=== PATIENT | male | born 1985 | race Caucasian/White ===

== ENCOUNTER 2023-01-25 13:40 | Emergency (ER) | payer OTHER, SELFPAY ==
[2023-01-25 13:46] VITALS: BP 177/96; PULSE 91; RESP 20; TEMP 36.7; O2SAT 96
--- NOTE | 2023-01-25 14:59 | ED.URI ---
HPI - URI/Sore Throat General Chief Complaint: Upper Respiratory Infection Stated Complaint: Cough/Chest Congestion Time Seen by Provider: 01/25/23 14:54 Source: patient and RN notes reviewed Mode of arrival: ambulatory Limitations: no limitations History of Present Illness HPI Narrative: Patient presents today complaining of a 3 week history of nasal congestion, cough, postnasal drip, sinus pressure. Denies shortness of breath or fever. He has been taking ibuprofen with some mild relief. Denies history of asthma or COPD. Related Data Allergies Allergy/AdvReac Type Severity Reaction Status Date / Time No Known Allergies Allergy Verified 01/25/23 13:57 Review of Systems Review of Systems: CONSTITUTIONAL: Denies body aches, fever, chills, or sweats. EYES: Denies visual changes, redness, or discharge. ENT: Denies rhinorrhea, sore throat, or otalgia.+ congestion, sinus pressure, postnasal drip CARDIOVASCULAR: Denies chest pain, palpitations, or edema. RESPIRATORY: Denies dyspnea.+ congestion GASTROINTESTINAL: Denies abdominal pain, nausea, vomiting, or diarrhea. GENITOURINARY: Denies dysuria or hematuria. SKIN: Denies rash, itching, or wounds. MUSCULOSKELETAL: Denies back pain, joint pain, or myalgia. NEUROLOGIC: Denies headache, numbness, tingling, or weakness. PSYCH: Denies depression or anxiety. PMFSH Past Medical History Medical History BMI greater than 40 Numbness in both hands Family History Family History Mother Family history of lymphoma Grandparent Diabetes mellitus Social History Social History Smoking status: Never smoker Alcohol intake: never Comments At time of signature, I have reviewed and agree with nursing past medical, surgical, social and family history unless otherwise noted. Please see nursing chart for further information. There is no relevant family history pertinent to the presenting complaint Exam Narrative: GENERAL: Well-appearing, well-nourished, and in no acute distress. HEAD: Normocephalic, atraumatic. EYES: EOMI. No redness or drainage. Conjunctivae normal. ENT: Mucous membranes pink and moist. Nares congested. No rhinorrhea. TMs normal bilaterally. Throat normal. Uvula midline. Bilateral frontal and maxillary sinus tenderness. NECK: Normal AROM. Supple. No lymphadenopathy. CHEST: No respiratory distress. Clear to auscultation. HEART: Regular rate and rhythm. No murmur appreciated. Normal peripheral pulses. EXTREMITIES: Normal range of motion. No edema. SKIN: Warm, dry, no rash. Capillary refill normal. Normal skin turgor. NEURO: No focal deficits. Alert and oriented x3. Gait steady. PSYCH: Normal affect. No signs of depression or anxiety. Course Course Level of Care: Express Care Visit Vital Signs Vital signs: Vital Signs Temperature 98.1 F 01/25/23 13:46 Pulse Rate 91 01/25/23 13:46 Respiratory Rate 20 01/25/23 13:46 Blood Pressure 177/96 H 01/25/23 13:46 Pulse Oximetry 96 01/25/23 13:46 Oxygen Delivery Room Air 01/25/23 13:46 Temperature 98.1 F 01/25/23 13:46 Pulse Rate 91 01/25/23 13:46 Respiratory Rate 20 01/25/23 13:46 Blood Pressure 177/96 H 01/25/23 13:46 Pulse Oximetry 96 01/25/23 13:46 Oxygen Delivery Room Air 01/25/23 13:46 Reviewed MDM - URI/Sore Throat MDM Narrative Medical decision making narrative: Prescriptions for Augmentin and prednisone sent to pharmacy to treat for sinusitis and bronchitis. Suggested Sudafed for sinus pressure. No testing indicated at this time. Anticipatory guidance given. Differential Diagnosis Differential diagnosis: Likely upper respiratory infection, sinusitis, viral infection and bronchitis Critical Care Time Critical Care Time Critical Care Time: No Discharge Plan Dis
== END 2023-01-25 15:05 | disposition home or self-care (01) ==
PROVIDERS: Emergency Provider Nurse Practitioner; PCP Family Medicine
DX: J40 Bronchitis, not specified as acute or chronic (principal); J01.90 Acute sinusitis, unspecified
CPT/HCPCS: 99213; G0463

== ENCOUNTER 2023-03-22 11:01 | Emergency (ER) | payer OTHER, SELFPAY ==
[2023-03-22 11:08] VITALS: BP 149/85; PULSE 90; RESP 16; TEMP 36.7; O2SAT 97
--- NOTE | 2023-03-22 11:33 | ED.GENADULT ---
HPI - General Adult General Chief complaint: Upper Respiratory Infection Stated complaint: cough / chest congestion Source: patient, RN notes reviewed and old records reviewed Mode of arrival: ambulatory Limitations: no limitations History of Present Illness HPI narrative: 37-year-old male presents to [facility] with complaint cough, shortness of breath this started 3-4 weeks ago. Patient states was seen here 2 months ago and diagnosed with bronchitis, patient states to prescription medications as prescribed, patient states symptoms did improve but never fully went away. MD complaint: Cough Onset (ago): week(s) (3-4) Related Data Allergies Allergy/AdvReac Type Severity Reaction Status Date / Time No Known Allergies Allergy Verified 03/22/23 11:26 Review of Systems Constitutional: Constitutional: Reports no additional constitutional complaints, Denies body ache(s), Denies chills, Denies fatigue, Denies fever(s) and Denies headache(s) Eyes: Eyes: Reports no additional eye complaints and Denies blurry vision ENT: Reports system reviewed and no additional complaints, except as documented, Denies vertigo, Denies dizziness, Denies ear discharge, Denies otalgia, Denies facial pain, Denies headache(s), Denies nasal congestion, Denies nasal discharge, Denies sinus pain, Denies sinus pressure and Denies sore throat Cardiovascular: Cardiovascular: Reports no additional cardiovascular complaints, Reports chest pain, Reports chest pain at rest, Denies rapid heart rate and Reports dyspnea Respiratory: Respiratory: Reports no additional respiratory complaints, Denies chest congestion, Denies cough, Denies pain on inspiration, Denies pain with cough and Denies dyspnea Gastrointestinal: Gastrointestinal: Denies abdominal pain, Denies diarrhea, Denies nausea and Denies vomiting Integumentary/Breasts: Skin/Breast: Denies rash Neurologic: Reports system reviewed and no additional complaints, except as documented, Denies vertigo, Denies dizziness and Denies headache(s) Endocrine: Endocrine: Denies fatigue PMFSH Past Medical History Medical History BMI greater than 40 Numbness in both hands Family History Family History Mother Family history of lymphoma Grandparent Diabetes mellitus Social History Social History Smoking status: Never smoker Alcohol intake: never Comments At the time of my signature, I reviewed and agree with the nursing past medical, surgical, social, and family history. There is no relevant family history pertinent to the patient complaint. Exam Const: General: cooperative, healthy appearing, no acute distress and well nourished Nutritional Appearance: well nourished Orientation/consciousness: patient oriented x3 Limitations: no limitations HENMT: Head: normal to inspection and normocephalic Ears: external ears normal, TM's normal bilaterally, mastoids normal and Abnormal EAC present Face/Nose/Sinus: normal facial exam Face and sinus: normal facial exam Mouth: Yes Normal oral and palatal mucosa present, Yes oropharynx normal and Yes moist mucous membranes Throat: tonsils normal, uvula midline and no uvular edema Eyes: General: appearance normal, both eyes and all related structures Sclera: sclerae normal Pupils: Equal, round and reactive pupils present Resp: Effort & Inspection: normal respiratory effort, able to speak in complete sentences, no audible wheezes, no cough, no respiratory distress and no retractions Auscultation: clear to auscultation bilaterally, no crackles, no rales, no rhonchi and no wheezes Cardio: Rate: regular rate Rhythm: regular rhythm Skin: General skin exam: normal color and no rashes or lesions noted Neuro: General: patient oriented x3 Cranial nerves: Yes Equal, round and reactive pupils present Psych:
== END 2023-03-22 11:49 | disposition home or self-care (01) ==
PROVIDERS: Emergency Provider Registered Nurse; PCP Family Medicine
DX: J20.9 Acute bronchitis, unspecified (principal)
CPT/HCPCS: 99213; G0463

== ENCOUNTER 2024-06-18 09:08 | Emergency (ER) | payer OTHER, SELFPAY ==
--- NOTE | ~2024-06-18 | XR_ITS ---
XR chest 2V Ordering provider: DEJA Cardoso History: 39 years Male with . cough and chest congestion 2-3 days. non smoker . Comparison: None. FINDINGS: MEDIASTINUM: The cardiac silhouette is not enlarged. Slightly prominent shane. LUNGS: No infiltrates, effusions or pneumothorax. OTHER: No free air under the diaphragm. Degenerative changes of the spine. IMPRESSION: No acute cardiopulmonary pathology. Reviewed, dictated and finalized at location A.
[2024-06-18 09:16] VITALS: BP 168/92; PULSE 98; RESP 20; TEMP 36.7; O2SAT 96
--- OUTSIDE RECORDS SUMMARY | 2024-06-18 10:00 | XMS_ITS | Clinical Summary ---
Author Organization [facility] Address [address] [place] [address] Care Team Providers Care Urology Teacher Name Role Phone Perez Draper MD Primary Care Provider [phone] Allergies Active Allergy Reactions Criticality Noted Date Comments Oxycodone-Acetaminop hen Other (See comments),Nausea & Vomiting Low 02/02/2021 And body aches- felt like I had the flu Wasp Venom Shortness of breath High 10/14/2017 Medications ibuprofen (ADVIL,MOTRIN) 200 mg tab/cap Take 2 tablet/capsule (400 mg total) by mouth every 6 (six) hours as needed for pain Active traMADoL (ULTRAM) 50 mg tabletIndications :Lateral epicondylitis of right elbow Take 0.5-1 tablets (25-50 mg total) by mouth every 8 (eight) hours as needed for pain P.r.n. pain not relieved by naproxen alone. Take with food. Collaborating physician Jayjay Ivory MD 20 tablet 03/25/20 24 Active docusate sodium (COLACE) 100 mg capsuleIndication s:constipation Take 1 capsule (100 mg total) by mouth 2 (two) times a day for 14 days 28 capsule 05/16/19 25 Active ondansetron (ZOFRAN) 4 mg tabletIndications :Prevention of Post-Operative Nausea and Vomiting Take 1 tablet (4 mg total) by mouth every 8 (eight) hours as needed for nausea or vomiting 20 tablet 05/16/19 25 Active oxyCODONE (ROXICODONE) 5 mg immediate release tabletIndications :Pain TAKE ONE TO TWO TABLETS EVERY 4 TO 6 HOURS PRN PAIN 40 tablet 05/16/19 25 Active famotidine (PEPCID) 40 mg tabletIndications :Laryngeal spasm Take 1 tablet (40 mg total) by mouth nightly 90 tablet 3 06/01/19 22 025 Discontin ued(Thera py completed ) cetirizine (ZyrTEC) 10 mg tabletIndications :Seasonal allergic rhinitis due to pollen Take 1 tablet (10 mg total) by mouth daily 30 tablet 11 07/01/19 22 025 Discontin ued(Thera py completed ) benzonatate (TESSALON) 200 mg capsuleIndication s:Acute cough Take 1 capsule (200 mg total) by mouth 3 (three) times a day as needed for cough 30 capsule 07/01/19 24 025 Discontin ued(Thera py completed ) naproxen (NAPROSYN) 500 mg tabletIndications :Lateral epicondylitis of right elbow Take 1 tablet (500 mg total) by mouth 2 (two) times a day with meals P.r.n. pain and swelling. Collaborating physician Jayjay Ivory MD 30 tablet 03/25/20 24 025 Discontin ued(Stop Taking at Discharge ) Active Problems Problem Noted Date Diagnosed Date Rupture of right distal biceps tendon 05/02/2024 Lateral epicondylitis of right elbow 03/25/2024 Seasonal allergic rhinitis due to pollen 022 Assessment & Plan (05/31/2021 3:41 PM EXPLOSIVE TECHNICIAN): Nasal saline spray (Simply saline, [employer] Remedies, [place], [place]) 2 second sprays or 2 squeezes into each nostril while looking down over the sink, do not need to sniff in after work Pepcid 40 mg at bedtime Blood Allergy testing Laryngeal spasm 05/31/2021 Assessment & Plan (05/31/2021 3:42 PM EXPLOSIVE TECHNICIAN): Nasal saline spray (Simply saline, [employer]ed[employer], [place], [place]) 2 second sprays or 2 squeezes into each nostril while looking down over the sink, do not need to sniff in after work Pepcid 40 mg at bedtime Blood Allergy testing LPR discussed and Handout provided Sleep-disordered breathing 05/31/2021 Assessment & Plan (05/31/2021 3:41 PM EXPLOSIVE TECHNICIAN): Referral to Sleep Medicine Pain in wrist 03/16/2015 Overview (06/30/2016): Wrist pain Encounters Date Type Department Care Team Description 05/28/2024 1:30 PM EXPLOSIVE TECHNICIAN Office Visit [facility] Orthopaedic Surgery [address] [place] [address] [address] [place] [phone] Cullen Velasquez MD Rupture of right distal biceps tendon, subsequent encounter (Primary Dx) 05/20/2024 1:04 PM EXPLOSIVE TECHNICIAN Anesthesia Event [facility] [address] [place] [id number] Momo Lockhart MD Horton, Cheryl Renee Hill, NP 05/20/2024 1:00 PM EXPLOSIVE TECHNICIAN - 05/20/2024 3:15 PM EXPLOSIVE TECHNICIAN Surgery [facility] [address] [place] [phone] Cullen Velasquez MD Right distal biceps repair 05/20/2024 10:50 AM EXPLOSIVE TECHNICIAN - 05/20/2024 5:06 PM EXPLOSIVE TECHNICIAN Hospital Encounter [facility] at the Orthopedic [address] [phone] Cullen Velasquez MD Rupture of right distal biceps tendon, subsequent encounter (Primary Dx) Discharge Disposition: Discharge to home or self care 05/16/2024 Telephone [facility] Orthopaedic Surgery [address] [place] [address] Advanced Medicine 12th [place] [address] [place] [address] Cullen Velasquez MD 05/16/2024 Orders Only [facility] Orthopaedic Surgery [address] [place] [address] [facility] [address]th [place] [address] [place] [address] Cullen Velasquez MD 05/15/2024 Orders Only [facility] Orthopaedic Surgery [address] [place] [address] [facility] 12th [place] [address] [place] [address] Cullen Velasquez MD 05/10/2024 Documentation [facility] Orthopaedic Surgery [address] [facility] [address]th [place] [address] [place] [address] Cullen Velasquez MD 05/08/2024 Orders Only [facility] Usman Pham PA Other injury of muscle, fascia and tendon of other parts of biceps, right arm, subsequent encounter 05/02/2024 Orders Only [facility] Orthopaedic Surgery [address] [facility] [address]th [place] [address] [place] [address] Cullen Velasquez MD Rupture of right distal biceps tendon, initial encounter (Primary Dx) 04/30/2024 2:30 PM EXPLOSIVE TECHNICIAN Office Visit [facility] Orthopaedic Surgery [id number] [place] [address] 2nd [address] [place] [phone] Cullen Velasquez MD Rupture of distal biceps tendon, right, initial encounter (Primary Dx) 04/22/2024 5:23 PM EXPLOSIVE TECHNICIAN - 04/22/2024 11:59 PM EXPLOSIVE TECHNICIAN Hospital Encounter [facility] [address] [place] [phone] Diagnosis unknown Discharge Disposition: Discharge to home or self care 04/19/2024 11:00 AM EXPLOSIVE TECHNICIAN Office Visit [facility] Surgery [address] [place] [address] Floor [address] [place] [phone] Usman Pham PA Other injury of muscle, fascia and tendon of other parts of biceps, right arm, subsequent encounter (Primary Dx) 03/25/2024 4:00 PM EXPLOSIVE TECHNICIAN - 03/25/2024 5:42 PM EXPLOSIVE TECHNICIAN Emergency [facility] Emergency Department [address] [place] [address] Lateral epicondylitis of right elbow (Primary Dx) Discharge Disposition: Discharge to home or self care 03/25/2024 2:57 PM EXPLOSIVE TECHNICIAN - 03/25/2024 3:21 PM EXPLOSIVE TECHNICIAN Emergency [facility] Emergency Department [address] [place] [address] Discharge Disposition: Left without being seen from Last 3 Months Immunizations Immunization Administration Dates Next Due Tdap 10/12/2018 Surgical History Surgery Date Site/Laterality Comments HERNIA REPAIR 03/27/2011 - 03/26/2012 KNEE CARTILAGE SURGERY 03/27/2003 - 03/26/2004 Right ORIF FIBULA FRACTURE 03/27/2006 - 03/26/2007 Right INGUINAL HERNIA REPAIR 03/27/2020 - 03/26/2021 Right Medical History Medical History Date Comments Known health problems: none PONV (postoperative nausea a nd vomiting) with first surgery in high s chool- denies with subsequent surgeries Motion sickness Family History Medical History Relation Name Comments Other Other Family history of diabetes, hypertension and cancer.; Anesthesia problems Neg Hx Relation Name Status Comments Other Social History Tobacco Use Types Packs/Day Years Used Date Smoking Tobacco: Never Smokeless Tobacco: Never Tobacco Cessation:Counseling Given: Not Answered Alcohol Use Standard Drinks/Week Comments Never 0 (1 standard drink = 0.6 oz pur e alcohol) AUDIT-C Answer Date Recorded Q1: How often do you have a drink containing alcohol? Never 05/20/2024 Q2: How many drinks containi ng alcohol do you have on a typical day when you are drinking? Patient does not drink Q3: How often do you have si x or more drinks on one occasion? Never 05/20/2024 Personal Safety Answer Date Recorded Have you ever been in or are you currently in a harmful physical or emotional relationship or is someone making you feel afraid or unsafe? Denies 05/20/2024 Sex and Gender Information Value Date Recorded Sex Assigned at Not on file Legal Sex Male 3:21 PM EXPLOSIVE TECHNICIAN Gender Identity Not on file Sexual Orientation Not on file Obstetrics History Last Filed Vital Signs Vital Sign Reading Time Taken Comments Blood Pressure 149/92 05/20/2024 4:10 PM EXPLOSIVE TECHNICIAN Pulse 69 05/20/2024 4:10 PM EXPLOSIVE TECHNICIAN Temperature 36.2 C (97.2 F) 05/20/2024 2:55 PM EXPLOSIVE TECHNICIAN Respiratory Rate 12 05/20/2024 4:10 PM EXPLOSIVE TECHNICIAN Oxygen Saturation 95% 05/20/2024 4:10 PM EXPLOSIVE TECHNICIAN Inhaled Oxygen Concentration - - Weight 132.6 kg (292 lb 4.8 oz) 025 11:00 AM EXPLOSIVE TECHNICIAN Height 175.3 cm (5' 9 ) 05/20/2024 11:0 0 AM EXPLOSIVE TECHNICIAN Body Mass Index 43.17 05/20/2024 11:00 AM EXPLOSIVE TECHNICIAN Plan of Treatment Health Maintenance Due Date Last Done Comments Depression Screening 1987 Hepatitis C Screening 1987 Varicella Vaccines (1 of 2 - 13+ 2-dose series) 2000 Hepatitis B Screening 2005 Regular Well Visit/Exam 18-64 2005 Influenza Vaccine (#1) 2023 DTaP/Tdap/Td Vaccine (2 - Td or Tdap) 10/12/2028 10/12/2018 HPV Vaccines Aged Out No longer eligi ble based on patient's age to complete this topic Pneumococcal vaccine <65 Aged Out No longer eligible based on patient's age to complete this topic Medical Devices Implanted Type Area Mill Control Operator Device Identifier Shelf Expiration Date Model / Serial / Lot [employer]/C R Bard [id number] Perfix 1.9in 1.6in Monofilament Nonabsorbable Groin Large Taper - [id number] Implanted:Qty: 1 on 02/12/2021 by Ralph Cook MD at [facility] Mesh Right: Groin [employer] R Bard [id number] 11/21/2022 [id number] / / [id number] Description:Plug not implant ed- only mesh Plate Right: Ankle [employer] Button Drill Assembly Machine Tender Screw Kit Arthroscopic Fixation Sterile Ar-2260 - [id number] Implanted:Qty: 1 on 05/20/2024 by Cullen Velasquez MD at [facility] Right: Ulna [employer] 12/24/2028 AR-2260 / / [id number] Procedures Procedure Name Priority Date/Time Associated Diagnosis Comments OK AN PROCEDURE PLACEHOLDER Routine 05/20/2024 1:19 PM EXPLOSIVE TECHNICIAN OK AN ELECTIVE SUPRAGLOTTIC AIRWAY Routine 05/20/2024 1:19 PM EXPLOSIVE TECHNICIAN REPAIR - DISTAL BICEPS 05/20/2024 1:06 PM EXPLOSIVE TECHNICIAN Rupture of right distal biceps tendon, initial encounter Special Needs 05/15 - Wt today is 298 lbs = 44.1 BMI and is aware of BMI policy and poss. CXL DOS if > 45 - per pt/MM email/TM/srr MRI ELBOW RIGHT WO CONTRAST Schedule Routine, Read Routine (OP Routine) 05/07/2024 3:24 PM EXPLOSIVE TECHNICIAN Other injury of muscle, fascia and tendon of other parts of biceps, right arm, subsequent encounter MSK MR OUTSIDE CONSULT Routine 04/22/2024 5:23 PM EXPLOSIVE TECHNICIAN Diagnosis unknown XR ELBOW RIGHT 3 OR MORE VIEWS ED 03/25/2024 3:40 PM EXPLOSIVE TECHNICIAN from Last 3 Months Results * OK AN ELECTIVE SUPRAGLOTTIC AIRWAY, OK AN PROCEDURE PLACEHOLDER (05/20/2024 1:19 PM EXPLOSIVE TECHNICIAN) Narrative Olinad Cárdenas CRNA - 05/20/2024 1:19 PM EXPLOSIVE TECHNICIAN Olinda Cárdenas CRNA 05/20/2024 1:19 PM Airway Patient location: OR Urgency: elective Date/time: 05/20/2024 1:19 PM Indications for airway management: anesthesia Difficult airway: no Staff: Placed by: CYBER SPECIAL AGENT: Olinda Cárdenas CRNA Emergent airway documentation: Risks and benefits discussed: yes Consent obtained: yes Airway prep: Preoxygenated: yes Patient position: sniffing Mask difficulty assessment: 0 - not attempted Spontaneous ventilation during airway: absent Sedation level during airway: GA Final airway details: Final airway type: supraglottic airway Final supraglottic airway: IGel SGA size: 5 Number of attempts: 1 Ventilation between attempts: none Additional comments: Lips, teeth, and tongue remain unchanged from preop assessment. Momo Lockhart MD ANESTHESIA ORDERABLES Teresa l Result * MRI Elbow Right WO Contrast (05/07/2024 3:24 PM EXPLOSIVE TECHNICIAN) Anatomical Region Laterality Modality Upper Extremities Right Magnetic Reson ance Usamn DOYLE IMG MRI PROCEDURES Final Result * MSK MR Outside Consult (04/22/2024 5:23 PM EXPLOSIVE TECHNICIAN) Anatomical Region Laterality Modality N/A Magnetic Resonan ce 04/22/2024 5:48 PM EXPLOSIVE TECHNICIAN Impressions 04/22/2024 5:48 PM EXPLOSIVE TECHNICIAN 1. Right distal biceps tendinopathy with high-grade tear of the distal biceps insertion, including complete rupture of the short head tendon with 2 cm retraction, as well as high-grade partial-thickness tear of the long head tendon. The findings, conclusions and recommendations within this report do not replace the initial findings, conclusions and recommendations made at the facility where the study was performed based upon the imaging and clinical condition at that time. Comparison with the prior report and clinical history is necessary. The provided images may or may not represent the [place] source data set and thus may contain changes that may lower the accuracy of this second-opinion interpretation. Electronically signed by: Quan Irby M.D. Narrative 04/22/2024 5:48 PM EXPLOSIVE TECHNICIAN EXAMINATION: RADIOLOGY CONSULTATION ON OUTSIDE IMAGING STUDY STUDY INITIALLY PERFORMED: 2024 at [facility]. TYPE OF STUDY: Multiple MR images of the right elbow without contrast are provided at the time of this interpretation. CONTRAST ROUTE: No contrast was administered. The protocol was adequate to address the clinical question. The outside final report was not available at the time of this second opinion interpretation. TYPE OF CONSULTATION: Consult on outside imaging study with images submitted through Outside Image Sharing Service DATE OF CONSULTATION: 04/22/2024 5:40 PM HISTORY: Right elbow injury COMPARISON: Radiographs from 03/25/2024 were reviewed. FINDINGS: There is extensive distal biceps tendinopathy with a complete rupture of the short head tendon and near complete rupture of the long head tendon from the radial tuberosity. A few long head fibers remain attached to the proximal radial tuberosity footprint. There is mild radiobicipital bursitis. There is approximately 2 cm retraction of the short head tendon stump and moderate underlying tendinopathy. There is a chronic low-grade sprain of the ulnar collateral ligament with heterotopic ossification near the medial epicondyle origin. The fibers are intact. The flexor pronator origin is intact. Laterally, there is chronic moderate extensor origin tendinopathy at the lateral epicondyle. The radial collateral, lateral ulnar collateral, and annular ligaments are intact. The distal triceps tendon and muscle are normal. The neurovascular bundles are normal. Articular cartilage of the elbow is normal. There is no fracture or joint effusion. There is no muscle denervation or atrophy. Procedure Note Quan Irby MD - 04/22/2024 EXAMINATION: RADIOLOGY CONSULTATION ON OUTSIDE IMAGING STUDY STUDY INITIALLY PERFORMED: 2024 at [facility]. TYPE OF STUDY: Multiple MR images of the right elbow without contrast are provided at the time of this interpretation. CONTRAST ROUTE: No contrast was administered. The protocol was adequate to address the clinical question. The outside final report was not available at the time of this second opinion interpretation. TYPE OF CONSULTATION: Consult on outside imaging study with images submitted through Outside Image Sharing Service DATE OF CONSULTATION: 04/22/2024 5:40 PM HISTORY: Right elbow injury COMPARISON: Radiographs from 03/25/2024 were reviewed. FINDINGS: There is extensive distal biceps tendinopathy with a complete rupture of the short head tendon and near complete rupture of the long head tendon from the radial tuberosity. A few long head fibers remain attached to the proximal radial tuberosity footprint. There is mild radiobicipital bursitis. There is approximately 2 cm retraction of the short head tendon stump and moderate underlying tendinopathy. There is a chronic low-grade sprain of the ulnar collateral ligament with heterotopic ossification near the medial epicondyle origin. The fibers are intact. The flexor pronator origin is intact. Laterally, there is chronic moderate extensor origin tendinopathy at the lateral epicondyle. The radial collateral, lateral ulnar collateral, and annular ligaments are intact. The distal triceps tendon and muscle are normal. The neurovascular bundles are normal. Articular cartilage of the elbow is normal. There is no fracture or joint effusion. There is no muscle denervation or atrophy. IMPRESSION: 1. Right distal biceps tendinopathy with high-grade tear of the distal biceps insertion, including complete rupture of the short head tendon with 2 cm retraction, as well as high-grade partial-thickness tear of the long head tendon. The findings, conclusions and recommendations within this report do not replace the initial findings, conclusions and recommendations made at the facility where the study was performed based upon the imaging and clinical condition at that time. Comparison with the prior report and clinical history is necessary. The provided images may or may not represent the [place] source data set and thus may contain changes that may lower the accuracy of this second-opinion interpretation. Electronically signed by: Quan Irby M.D. Usman DOYLE IMBarbara MRI PROCEDURES Final Result * XR Elbow Right 3 or More Views (03/25/2024 3:40 PM EXPLOSIVE TECHNICIAN) Anatomical Region Laterality Modality Upper Extremities, Elbow Right Compute d Radiography 03/25/2024 4:57 PM EXPLOSIVE TECHNICIAN Narrative 03/25/2024 5:05 PM EXPLOSIVE TECHNICIAN EXAM DESCRIPTION: XR ELBOW RIGHT 3 OR MORE VIEWS REASON FOR STUDY: pain Pt states it feels like he ripped his arm muscle near his elbow. Pt states her hurt it while bowling. TECHNIQUE: For radiographic view(s) of the right elbow . COMPARISON: None FINDINGS: No definite fracture or dislocation. No sizeable joint effusion. IMPRESSION: No definite fracture or dislocation. If there is clinical concern for occult fracture, recommend follow-up radiographs in 7-10 days. THIS IS AN ELECTRONICALLY VERIFIED FINAL REPORT 03/25/2024 5:05 PM - Electronically signed by Todd Flores M.D. AM: AM Report ID: [id number] Reading Location: [id number] Procedure Note Todd Flores MD - 03/25/2024 EXAM DESCRIPTION: XR ELBOW RIGHT 3 OR MORE VIEWS REASON FOR STUDY: pain Pt states it feels like he ripped his arm muscle near his elbow. Pt statesher hurt it while bowling. TECHNIQUE: For radiographic view(s) of the right elbow . COMPARISON: None FINDINGS: No definite fracture or dislocation. No sizeable joint effusion. IMPRESSION: No definite fracture or dislocation. If there is clinical concern foroccult fracture, recommend follow-up radiographs in 7-10 days. THIS IS AN ELECTRONICALLY VERIFIED FINAL REPORT 03/25/2024 5:05 PM - Electronically signed by Todd Flores M.D. AM: AM Report ID: [id number] Reading Location: [id number] Kala Erickson MD IMG XR PROCEDURES F inal Result from Last 3 Months Insurance [facility] [employer] [employer] Address: [facility] [id number] [place] [address] [facility] [employer] Address[facility] [id number] [place] [address] [facility] [employer] Address: [facility] [id number] [place] [address] Care Teams Urology Teacher Relationship Specialty Start Date End Date Perez Draper MD PCP - General 04/06/15
--- OUTSIDE RECORDS SUMMARY | 2024-06-18 10:00 | XMS_ITS | Referral Summary ---
Author Organization [facility] Address [address] [place] [address] Care Team Providers Care Aviation Safety Inspector Name Role Phone Perez Draper MD Primary Care Provider [phone] Encounters Date Type Department Care Team Description 05/28/2024 1:30 PM DIET CLERK Office Visit [facility] Orthopaedic Surgery [address] [place] [address] 2nd Floor [address] [place] [phone] Cullen Velasquez MD Rupture of right distal biceps tendon, subsequent encounter (Primary Dx) 05/20/2024 1:00 PM DIET CLERK - 05/20/2024 3:15 PM DIET CLERK Surgery [facility] [address] [place] [id number] Cullen Velasquez MD Right distal biceps repair 05/20/2024 1:04 PM DIET CLERK Anesthesia Event [facility] [address] [place] [phone] Momo Lockhart MD Horton, Cheryl Renee Hill, NP 05/20/2024 10:50 AM DIET CLERK - 05/20/2024 5:06 PM DIET CLERK Hospital Encounter [facility] [address] [address] Cullen Velasquez MD Rupture of right distal biceps tendon, subsequent encounter (Primary Dx) Discharge Disposition: Discharge to home or self care 05/16/2024 Telephone [facility] Orthopaedic Surgery [address] [place] [address] 12th [place] [address] Cullen Velasquez MD 05/16/2024 Orders Only [facility] Orthopaedic Surgery [address] [facility] 12th [place] [address] [place] [address] Cullen Velasquez MD 05/15/2024 Orders Only [facility] Orthopaedic Surgery [address] [place] [address] 12th [place] [address] [place] [address] Cullen Velasquez MD 05/10/2024 Documentation [facility] Orthopaedic Surgery [address] [place] [address] [place] [address] Cullen Velasquez MD 05/08/2024 Orders Only [facility] Usman Pham PA Other injury of muscle, fascia and tendon of other parts of biceps, right arm, subsequent encounter 05/02/2024 Orders Only [facility] Orthopaedic [address] [place] [address] [place] [address] Cullen Velasquez MD Rupture of right distal biceps tendon, initial encounter (Primary Dx) 04/30/2024 2:30 PM DIET CLERK Office Visit [facility] Orthopaedic Surgery [address] [place] [address] 2nd Floor [address] [place] [phone] Cullen Velasquez MD Rupture of distal biceps tendon, right, initial encounter (Primary Dx) 04/22/2024 5:23 PM DIET CLERK - 04/22/2024 11:59 PM DIET CLERK Hospital Encounter [facility] [address] [place] [phone] Diagnosis unknown Discharge Disposition: Discharge to home or self care 04/19/2024 11:00 AM DIET CLERK Office Visit [facility] Surgery [address] [place] [address] Floor [address] [place] [phone] Usman Pham PA Other injury of muscle, fascia and tendon of other parts of biceps, right arm, subsequent encounter (Primary Dx) 03/25/2024 4:00 PM DIET CLERK - 03/25/2024 5:42 PM DIET CLERK Emergency [facility] Emergency Department [address] [place] [address] Lateral epicondylitis of right elbow (Primary Dx) Discharge Disposition: Discharge to home or self care 03/25/2024 2:57 PM DIET CLERK - 03/25/2024 3:21 PM [facility] Emergency [facility] Emergency Department [address] [place] [address] Discharge Disposition: Left without being seen from Last 3 Months Allergies Active Allergy Reactions Criticality Noted Date [...] 022 Assessment & Plan (05/31/2021 3:41 PM DIET CLERK): Nasal saline spray (Simply saline, Little Remedies, [place], [place]) 2 second sprays or 2 squeezes into each nostril while looking down over the sink, do not need to sniff in after work Pepcid 40 mg at bedtime Blood Allergy testing Laryngeal spasm 05/31/2021 Assessment & Plan (05/31/2021 3:42 PM DIET CLERK): Nasal saline spray (Simply saline, [place], [place], [place]) 2 second sprays or 2 squeezes into each nostril while looking down over the sink, do not need to sniff in after work Pepcid 40 mg at bedtime Blood Allergy testing LPR discussed and Handout provided Sleep-disordered breathing 05/31/2021 Assessment & Plan (05/31/2021 3:41 PM DIET CLERK): Referral to Sleep Medicine Pain in wrist 03/16/2015 Overview (06/30/2016): Wrist pain Immunizations Immunization Administration Dates Next Due Tdap 10/12/2018 Social History Tobacco Use Types Packs/Day Years [...] on file Legal Sex Male 3:21 PM DIET CLERK Gender Identity Not on file Sexual Orientation Not on file Last Filed Vital Signs Vital Sign Reading Time Taken Comments Blood Pressure 149/92 05/20/2024 4:10 PM DIET CLERK Pulse 69 05/20/2024 4:10 PM DIET CLERK Temperature 36.2 C (97.2 F) 05/20/2024 2:55 PM DIET CLERK Respiratory Rate 12 05/20/2024 4:10 PM DIET CLERK Oxygen Saturation 95% 05/20/2024 4:10 PM DIET CLERK Inhaled Oxygen Concentration - - Weight 132.6 kg (292 lb 4.8 oz) 025 11:00 AM DIET CLERK Height 175.3 cm (5' 9 ) 05/20/2024 11:0 0 AM DIET CLERK Body Mass Index 43.17 05/20/2024 11:00 AM DIET CLERK Plan of Treatment Not on file Medical Devices Implanted Type Area Speech Writer Device Identifier Shelf Expiration Date Model / Serial / Lot [employer]/C R Bard [id number] Perfix 1.9in 1.6in Monofilament Nonabsorbable Groin Large Taper - [id number] Implanted:Qty: 1 on 02/12/2021 by Ralph Cook MD at [facility] Mesh Right: Groin [employer] R Bard [id number] 11/21/2022 [id number] / / [id number] Description:Plug not implant ed- only mesh Plate Right: Ankle [employer] Button Drill Publicity Manager Screw Kit Arthroscopic Fixation Sterile Ar-2260 - [id number] Implanted:Qty: 1 on 05/20/2024 by Cullen Velasquez MD at [facility] Right: Ulna [employer] 12/24/2028 AR-2260 / / [id number] Procedures Procedure Name Priority Date/Time Associated Diagnosis Comments LA AN PROCEDURE PLACEHOLDER Routine 05/20/2024 1:19 PM DIET CLERK LA AN ELECTIVE SUPRAGLOTTIC AIRWAY Routine 05/20/2024 1:19 PM DIET CLERK REPAIR - DISTAL BICEPS 05/20/2024 1:06 PM DIET CLERK Rupture of right distal biceps tendon, initial encounter Special Needs 05/15 - Wt today is 298 lbs = 44.1 BMI and is aware of BMI policy and poss. CXL DOS if > 45 - per pt/MM email/TM/srr MRI ELBOW RIGHT WO CONTRAST Schedule Routine, Read Routine (OP Routine) 05/07/2024 3:24 PM DIET CLERK Other injury of muscle, fascia and tendon of other parts of biceps, right arm, subsequent encounter MSK MR OUTSIDE CONSULT Routine 04/22/2024 5:23 PM DIET CLERK Diagnosis unknown XR ELBOW RIGHT 3 OR MORE VIEWS ED 03/25/2024 3:40 PM DIET CLERK from Last 3 Months Results * LA AN ELECTIVE SUPRAGLOTTIC AIRWAY, LA AN PROCEDURE PLACEHOLDER (05/20/2024 1:19 PM DIET CLERK) Narrative Olinda Cárdenas CRNA - 05/20/2024 1:19 PM DIET CLERK Olinda Cárdenas CRNA 05/20/2024 1:19 PM Airway Patient location: OR Urgency: elective Date/time: 05/20/2024 1:19 PM Indications for airway management: anesthesia Difficult airway: no Staff: Placed by: LIZA: Olinda Cárdenas CRNA Emergent airway documentation: Risks [...] Elbow Right WO Contrast (05/07/2024 3:24 PM DIET CLERK) Anatomical Region Laterality Modality Upper Extremities Right Magnetic Reson ance Usman DOYLE IMG MRI PROCEDURES Final Result * MSK MR Outside Consult (04/22/2024 5:23 PM DIET CLERK) Anatomical Region Laterality Modality N/A Magnetic Resonan ce 04/22/2024 5:48 PM DIET CLERK Impressions 04/22/2024 5:48 PM DIET CLERK 1. Right distal biceps tendinopathy with high-grade [...] images may or may not represent the blackfeet source data set and thus may contain changes that may lower the accuracy of this second-opinion interpretation. Electronically signed by: Quan Irby M.D. Narrative 04/22/2024 5:48 PM DIET CLERK EXAMINATION: RADIOLOGY CONSULTATION ON OUTSIDE IMAGING STUDY STUDY INITIALLY PERFORMED: 2024 at [facility]. TYPE OF STUDY: Multiple MR [...] IMAGING STUDY STUDY INITIALLY PERFORMED: 2024 at [facility]. TYPE OF STUDY: Multiple MR [...] images may or may not represent the blackfeet source data set and thus may contain changes that may lower the accuracy of this second-opinion interpretation. Electronically signed by: Quan Irby M.D. Usman DOYLE IMG MRI PROCEDURES Final Result * XR Elbow Right 3 or More Views (03/25/2024 3:40 PM DIET CLERK) Anatomical Region Laterality Modality Upper Extremities, Elbow Right Compute d Radiography 03/25/2024 4:57 PM DIET CLERK Narrative 03/25/2024 5:05 PM DIET CLERK EXAM DESCRIPTION: XR ELBOW RIGHT 3 OR [...] Todd Flores M.D. AM: AM Report ID: [id number] Reading Location: [place] [address] Procedure Note Todd Flores MD - 03/25/2024 [...] Todd Flores M.D. AM: AM Report ID: [id number] Reading Location: [id number] Kala Erickson MD IMG XR PROCEDURES F inal Result from Last 3 [place] [address] [facility] [employer] Address: [facility] [id number] [place] [phone] [employer] Care Teams Aviation Safety Inspector Relationship Specialty Start Date End Date Perez Draper MD PCP - General 04/06/15
--- NOTE | 2024-06-18 10:53 | ED.GENADULT ---
HPI - General Adult General Chief complaint: Upper Respiratory Infection Stated complaint: Congestion/Chest Congestion Source: patient Mode of arrival: ambulatory Limitations: no limitations History of Present Illness HPI narrative: Patient presents for evaluation of sinus symptoms for last 5 days. Symptoms include sinus congestion, mucopurulent discharge from the nares and cough. He denies any fever, chills, nausea, vomiting, diarrhea. He is not aware of any sick contacts. He does not smoke. He has had sinus infections and bronchitis in the past. Related Data Allergies Allergy/AdvReac Type Severity Reaction Status Date / Time No Known Allergies Allergy Verified 04/05/24 07:10 Review of Systems Review of Systems: CONSTITUTIONAL: Denies fever, chills, or sweats. EYES: Denies visual changes, redness, or discharge. ENT: Reports sinus congestion, and thick yellow drainage from the nares. Denies sore throat or otalgia CARDIOVASCULAR: Denies chest pain, palpitations, or edema. RESPIRATORY: Reports cough. Denies dyspnea. GASTROINTESTINAL: Denies abdominal pain, nausea, vomiting, or diarrhea. GENITOURINARY: Denies dysuria or hematuria. SKIN: Denies rash or itching. MUSCULOSKELETAL: Denies back pain, joint pain, or myalgia. NEUROLOGIC: Denies headache, numbness, dizziness, or weakness. PSYCHIATRIC: Denies anxiety or depression. PMFSH Past Medical History Medical History Numbness in both hands BMI greater than 40 Surgical History Surgical History No pertinent past surgical history Family History Family History Mother Family history of lymphoma Grandparent Diabetes mellitus Social History Social History Smoking status: Never smoker Alcohol intake: never Exam Narrative: GENERAL: Well-appearing, well-nourished, and in no acute distress. HEAD: Normocephalic, atraumatic. EYES: PERRLA and EOMI. ENT: Nares clear, no rhinorrhea or epistaxis. Mucous membranes moist. Oropharynx without tonsillar hypertrophy exudate or other lesions. Bilateral TMs pearly johnson nonbulging NECK: Supple. No adenopathy or masses. No carotid bruits or JVD CHEST: Clear to auscultation. No respiratory distress. No wheezes rales or rhonchi HEART: Regular rate and rhythm. No murmur heard. Normal peripheral pulses. ABDOMEN: Soft, nontender, nondistended, normal active bowel sounds. EXTREMITIES: Normal range of motion. No edema. SKIN: Warm, dry, no rash. NEURO: No focal deficits. Alert and oriented x3. PSYCH: Normal mood and affect. Course Course Emergency Course: This is a 39 year old male who presented for evaluation of sinus symptoms. CXR obtained and negative. He meets criteria for ARBS based upon mucopurulent nature of discharge. Will dc with augmentin and prednisone. Follow up with primary provider. Go to the ER for worsening symptoms. Pt in agreement with plan of care. Level of Care: Express Care Visit Vital Signs Vital signs: Vital Signs Temperature 36.7 C 06/18/24 09:16 Pulse Rate 98 06/18/24 09:16 Respiratory Rate 20 06/18/24 09:16 Blood Pressure 168/92 H 06/18/24 09:16 Pulse Oximetry 96 06/18/24 09:16 Oxygen Delivery Room Air 06/18/24 09:16 Temperature 36.7 C 06/18/24 09:16 Pulse Rate 98 06/18/24 09:16 Respiratory Rate 20 06/18/24 09:16 Blood Pressure 168/92 H 06/18/24 09:16 Pulse Oximetry 96 06/18/24 09:16 Oxygen Delivery Room Air 06/18/24 09:16 Medical Decision Making Vital Signs Vital Signs: Vital Signs Temperature 36.7 C 06/18/24 09:16 Pulse Rate 98 06/18/24 09:16 Respiratory Rate 20 06/18/24 09:16 Blood Pressure 168/92 H 06/18/24 09:16 Pulse Oximetry 96 06/18/24 09:16 Oxygen Delivery Room Air 06/18/24 09:16 Temperature 36.7 C 06/18/24 09:16 Pulse Rate 98 06/18/24 09:16 Respiratory Rate 20 06/18/24 09:16 Blood Pressure 168/92 H 06/18/24 09:16 Pulse Oximetry 96 06/18/24 09:16 Oxygen Delivery Room Air 06/18/24 09:16 Imaging Data Radiologist's impression: XR chest 2V Ordering provider: DEJA Cardoso History: 39 years Male with . cough and chest congestion 2-3 days. non smoker . Comparison: None. FINDINGS: MEDIASTINUM: The cardiac silhouette is not enlarged. Slightly prominent shane. LUNGS: No infiltrates, effusions or pneumothorax. OTHER: No free air under the diaphragm. Degenerative changes of the spine. IMPRESSION: No acute cardiopulmonary pathology. Discharge Plan Discharge Clinical Impression: Sinusitis Patient Disposition: Home, Self-Care Condition: Stable Instructions: Antibiotic Form, Sinusitis (ED) Patient Language: [place] Prescriptions: New amoxicillin-pot clavulanate 875-125 mg tablet 1 tablet PO Q12H Qty: 20 0RF prednisone 50 mg tablet 50 mg PO DAILY Qty: 5 0RF No Action epinephrine [EpiPen] 0.3 mg/0.3 mL auto-injector 0.3 mg IM ONCE Qty: 2 0RF Rx Instructions: as a single dose Follow-up/Referrals: Perez Draper MD [Primary Care Provider] -
== END 2024-06-18 10:26 | disposition home or self-care (01) ==
PROVIDERS: Emergency Provider Nurse Practitioner; PCP Family Medicine
DX: J32.9 Chronic sinusitis, unspecified (principal)
CPT/HCPCS: 71046; 99213; G0463